=== PATIENT | female | born 1965 | race African-American/Black ===

== ENCOUNTER 2017-05-27 15:05 | Emergency (ER) | payer OTHER ==
[~2017-05-27] VITALS: Ht 172.7 cm; Wt 145.2 kg
[~2017-05-27 15:05] MED LIST: BACTRIM DS TAB1 EACH PO; IBUPROFEN 800800 M1 PO; NORCO 7.5-3251 EACH PO; SENOKOT-S1 TA1 PO; TRAMADOL 50 MG50 MG PO; ZOFRAN ODT4 MG PO
[2017-05-27] MEDS ORDERED: VENTOLIN HFA 1818 GM INH (16:25)
[2017-05-27] MEDS ORDERED: DIFLUCAN200 MG PO (16:25)
[2017-05-27] MEDS ORDERED: TESSALON PERLE100 MG PO (16:25)
[2017-05-27] MEDS ORDERED: CLARITIN-D 121 EAC1 PO (16:25)
[2017-05-27 16:50] VITALS: BP 141/71
== END 2017-05-27 17:05 | disposition home or self-care (01) ==
LOC: ER 15:05
DX: J40 Bronchitis, not specified as acute or chronic (principal); J06.9 Acute upper respiratory infection, unspecified; B35.4 Tinea corporis; F10.99 Alcohol use, unspecified with unspecified alcohol-induced disorder; Z88.1 Allergy status to other antibiotic agents

== ENCOUNTER 2017-06-13 14:34 | Inpatient (IN) | payer OTHER ==
[~2017-06-13] VITALS: Ht 172.7 cm; Wt 149.7 kg
--- NOTE | ~2017-06-13 | 2DMMODE ---
[facility] [address] [place] [address] 2 D/M-MODE ECHOCARDIOGRAM Name: JAJAJAZMÍN Room #: 431-P ADM IN M.R.#: [id number] Admission: 06/13/17 Attend Phys: Dash Vang, Discharge: Date of : 69 Date of Service: 06/14/17 1015 Report #: [id number] THIS REPORT FOR: //name// APPROVED REPORT Study performed: 06/14/2017 09:13:18 EXAM: Comprehensive 2D, Doppler, and color-flow Echocardiogram Patient Location: Bedside Room #: 431 Status: routine BSA: 2.53 HR: 62 bpm BP: 155/74 mmHg Rhythm: NSR Other Information Study Quality: Adequate Indications Pulmonary Embolism Hx: morbid obesity 2D Dimensions RVDd: 39.74 mm LVEF(%): 48.24 (>50%) IVSd: 10.40 (7-11mm) LVOT Diam: 21.00 (18-24mm) LVDd: 49.86 mm PWd: 9.94 (7-11mm) Ascending Ao: 32.62 (22-36mm) LVDs: 37.70 (25-40mm) Aortic Root: 30.61 mm Rodriguez's LVEF: 48.24 % Volumes Left Atrial Volume (Systole) Single Plane 4CH: 54.11 mL Single Plane 2CH: 54.93 mL LA ESV Index: 24.00 mL/m2 Aortic Valve AoV Peak Clarence.: 1.78 m/s AO Peak Gr.: 12.67 mmHg LVOT Max P.21 mmHg LVOT Max V: 1.34 m/s Mitral Valve E/A Ratio: 0.9 MV Decel. Time: 210.86 ms [facility] [place] [address] [place] [address] 2 D/M-MODE ECHOCARDIOGRAM Name: JAZMÍN WILKINSON Room #: 431-[facility] IN .R.#: [id number] Admission: 06/13/17 Attend Phys: Dash Vang, Discharge: Date of : 69 Date of Service: 06/14/17 1015 Report #: [id number] MV E Max Clarence.: 0.74 m/s MV A Clarence.: 0.86 m/s MV PHT: 61.15 ms IVRT: 92.27 ms Pulmonary Valve PV Peak Clarence.: 1.10 m/s PV Peak Gr.: 4.84 mmHg Pulmonary Vein P Vein S: 0.61 m/s P Vein A: 0.34 m/s P Vein D: 0.75 m/s P Vein A Dur.: 101.5 msec P Vein S/D Ratio: 0.81 Tricuspid Valve TR Peak Clarence.: 2.66 m/s RAP Estimate: 5.00 mmHg TR Peak Gr.: 28.38 mmHg PA Pressure: 33.00 mmHg Left Ventricle The left ventricle is normal size. There is normal LV segmental wall motion. There is normal left ventricular wall thickness. Left ventricular systolic function is normal. LVEF 55%. Mild diastolic dysfunction is present (impaired relaxation pattern). Right Ventricle The right ventricle is normal size. The right ventricular systolic function is normal. Atria The left atrium size is normal. The right atrium size is normal. Aortic Valve Aortic valve is mildly calcified. No aortic regurgitation. There is no aortic valvular stenosis. Mitral Valve The mitral valve is normal in structure. Trace to mild mitral regurgitation. Tricuspid Valve The tricuspid valve is normal in structure. Trace to mild tricuspid regurgitation. Estimated PAP is 30-35mmHg. Pulmonic Valve The pulmonary valve is normal in structure. Trace pulmonic [address] [address] 2 D/M-MODE ECHOCARDIOGRAM Name: KANDY WILKINSONLINE Room #: 431-P [facility] IN ..#: [id number] Admission: 06/13/17 Attend Phys: Dash Vang, Discharge: Date of : 69 Date of Service: 06/14/17 1015 Report #: [id number] regurgitation. Great Vessels The aortic root is normal in size. The ascending aorta is normal in size. IVC is normal in size and collapses >50% with inspiration. Pericardium There is no pericardial effusion. Right pleural effusion noted. <Conclusion> Left ventricular systolic function is normal. There is normal LV segmental wall motion. LVEF 55%. Mild diastolic dysfunction is present (impaired relaxation pattern). Aortic valve is mildly sclerotic, no aortic valvular stenosis or insufficiency. The mitral valve is normal in structure. Trace to mild mitral regurgitation. Pulmonary artery pressure of 30-35mmHg There is no pericardial effusion. <ELECTRONICALLY SIGNED> By: Shaknar Brewster MD, [facility] 06/14/17 1015 1015 1015 Shankar Brewster MD, FAC /INF
--- NOTE | ~2017-06-13 | EKG ---
[address] [address] ELECTROCARDIOGRAM REPORT Name: JAJAJAZMÍN Room #: 431-P ADM IN M.R.#: [id number] Admission: 06/13/17 Attend Phys: Dash Vang MD Discharge: Date of : 69 Report #: [id number] THIS REPORT FOR: //name// [facility] ED Test Date: 2017-06-13 Test Time: 14:47:56 Pat Name: JAZMÍN WILKINSON Department: Room: [facility] Gender: F Cra: [id number] : 1965 Requested By: Sandy Suh Order Number: [id number] MD: Shankar Brewster Measurements Intervals [place] Rate: 68 P: 49 MA: 155 QRS: 21 QRSD: 90 T: -17 QT: 399 QTc: 425 Interpretive Statements Sinus rhythm Nonspecific T abnormalities, inferior leads No previous ECG available for comparison Electronically Signed On 06-14-2017 7:20:34 CDT by Shankar Brewster [email or web address] <ELECTRONICALLY SIGNED> By: Shankar Brewster MD, [facility] 06/14/17 0720 [id number] [id number] Shankar Brewster MD, [facility] /EPI
[~2017-06-13 14:34] MED LIST changes: +CLARITIN-D 121 EAC1 PO; +DIFLUCAN200 MG PO; +TESSALON PERLE100 MG PO; +VENTOLIN HFA 1818 GM INH
[2017-06-13 14:35] VITALS: BP 180/92
[2017-06-13] MEDS ORDERED: IBUPROFEN 200200 M1 PO (15:07)
[2017-06-13 15:09] LABS: ABSOLUTE NEUTROPHILS 4.3 thou/uL (1.4-8.2); BASOPHILS 0.6 % (0.0-2.0); HEMATOCRIT 35.6 % (37.0-47.0); LYMPHOCYTES 29.3 % (24.0-44.0); MANUAL DIFF NO; MCH 28.9 pg (26.0-34.0); MCHC 33.8 g/dL (28.0-37.0); MCV 85.5 fL (80.0-100.0); MONOCYTES 9.7 % (1.0-8.0); PLATELET COUNT 294 thou/uL (150-400); POLYS 57.4 % (36.0-66.0); RBC 4.17 mil/uL (4.20-5.00); RDW 13.4 % (10.5-14.5); WBC 7.5 thou/uL (4.0-11.0)
[2017-06-13 15:15] LABS: ANION GAP 7 mmol/L (7-16); BUN 11 mg/dL (7-18); CALCIUM 8.9 mg/dL (8.5-10.1); CHLORIDE 104 mmol/L (98-107); CO2 30 mmol/L (21-32); CREATININE 0.9 mg/dL (0.6-1.0); GLUCOSE 93 mg/dL (74-106); POTASSIUM 4.1 mmol/L (3.5-5.1); SODIUM 141 mmol/L (136-145)
[2017-06-13 15:24] LABS: TROPONIN-I < 0.04 ng/mL (<0.04-0.07)
[2017-06-13 17:14] LABS: APTT 25.7 Seconds (24.5-32.8); PROTIME 9.1 Seconds (9.3-11.4)
[2017-06-13 17:16] VITALS: BP 185/79
[2017-06-13 19:00] VITALS: BP 165/77
[2017-06-13 19:28] VITALS: BP 149/70
[2017-06-14 00:11] VITALS: BP 148/67
[2017-06-14 04:42] VITALS: BP 146/75
[2017-06-14 06:19] LABS: PROTIME 9.7 Seconds (9.3-11.4)
[2017-06-14 07:04] LABS: ANION GAP 4 mmol/L (7-16); BUN 12 mg/dL (7-18); CALCIUM 8.8 mg/dL (8.5-10.1); CHLORIDE 104 mmol/L (98-107); CHOLESTEROL 148 mg/dL (<200); CO2 29 mmol/L (21-32); CREATININE 0.8 mg/dL (0.6-1.0); GLUCOSE 85 mg/dL (74-106); HDL CHOLESTEROL 32 mg/dL (>40); LDL CHOLESTEROL 102 mg/dL (<100); MAGNESIUM 1.8 mg/dL (1.8-2.4); SODIUM 137 mmol/L (136-145); TC:HDL 4.6 Ratio (Not establshd); TRIGLYCERIDE 71 mg/dL (<150); VLDL 14 mg/dL (<40)
[2017-06-14 07:05] LABS: SERUM ASSESSMENT Clear
[2017-06-14 08:00] VITALS: BP 155/74
[2017-06-14] MEDS ORDERED: NORCO 5-325 TA1 EACH PO (15:45)
[2017-06-14] MEDS ORDERED: PROTONIX40 M1 PO (15:46)
[2017-06-14] MEDS ORDERED: ELIQUIS5 MG PO (15:46)
[2017-06-14 16:44] VITALS: BP 155/74
[2017-06-14] MEDS ORDERED: WORK RELEASE (18:15)
== END 2017-06-14 18:46 | disposition home or self-care (01) | DRG 313 ==
LOC: ER 14:34 → EROBS 17:07 → 4E 17:07
PROVIDERS: Emergency Medicine; Nurse Practitioner
DX: R07.9 Chest pain, unspecified (principal); Z68.43 Body mass index [BMI] 50.0-59.9, adult; R03.0 Elevated blood-pressure reading, without diagnosis of hypertension; R05 Cough; E66.01 Morbid (severe) obesity due to excess calories; Z88.8 Allergy status to other drugs, medicaments and biological substances; Z83.3 Family history of diabetes mellitus; Z80.8 Family history of malignant neoplasm of other organs or systems; Z82.49 Family history of ischemic heart disease and other diseases of the circulatory system
CPT/HCPCS: 10183

== ENCOUNTER 2018-11-23 17:25 | Emergency (ER) | payer OTHER ==
[~2018-11-23 17:25] MED LIST changes: +COUMADIN 5 MG TA5 M1 PO; +COUMADIN7.5 MG PO; +DELSYM COU30 MG/5 M1 PO; +ELIQUIS5 MG PO; +ENOXAPARIN150 MG/11 SUBQ; +IBUPROFEN 200200 M1 PO; +IRON325 PO; +LEVAQUIN 500 M500 M2 PO; +MIRALAX17 GM PO; +MUCINEX600 MG PO; +NORCO 5-325 TA1 EACH PO; +NORVASC5 MG PO; +PREDNISONE 20 M20 MG PO; +PROTONIX40 M1 PO; +VITAMIN D1000 UNI1 PO; +WORK RELEASE; +ZYRTEC10 M2 PO
[2018-11-23 17:26] VITALS: BP 130/82
[2018-11-23] MEDS ORDERED: PROMETH-CODEIN 65 ML PO (19:18)
[2018-11-23] MEDS ORDERED: OSELB75 PO (19:18)
--- NOTE | 2018-11-24 09:07 | EKG ---
[place] [address] [address] [facility] [place] [address] ELECTROCARDIOGRAM REPORT Name: JAJAJAZMÍN [id number] ������������������ Admission: 11/23/18 ������������������ Attend Phys: Discharge: 11/23/18 ������������������ Date of : 69 Report #: [id number] ����������������������������������������������������������������� [id number] THIS REPORT FOR: //name// [facility] ED Test Date: 2018-11-23 Test Time: 19:12:40 Pat Name: JAZMÍN WILKINSON Department: Room: Gender: F Printing Table Hand: ISSA : 1965 Requested By: Kimberley Franco Order Number: [id number] MD: Shankar Brewster Measurements Intervals [place] Rate: 61 P: 62 MT: 145 QRS: 17 QRSD: 89 T: -27 QT: 401 QTc: 404 Interpretive Statements Sinus rhythm Abnormal R-wave progression, early transition Borderline repolarization abnormality Compared to ECG 01/18/2018 01:09:31 No significant change was found Electronically Signed On 11-24-2018 9:06:57 [employer] by Shankar Brewster [email or web address] ��������������������������������������������� <ELECTRONICALLY SIGNED> ���������������������������������������� By: Shankar Brewster MD, [facility] ��������������������������������������������� 11/24/18905 11 11 Shankar Brewster MD, [facility] /EPI
== END 2018-11-23 20:15 | disposition home or self-care (01) ==
LOC: ER 17:25
DX: J10.1 Influenza due to other identified influenza virus with other respiratory manifestations (principal); M79.10 Myalgia, unspecified site; R19.7 Diarrhea, unspecified; I10 Essential (primary) hypertension; Z88.1 Allergy status to other antibiotic agents; Z98.890 Other specified postprocedural states; Z86.718 Personal history of other venous thrombosis and embolism

== ENCOUNTER 2019-07-02 15:46 | Inpatient (IN) | payer BC ==
[~2019-07-02] VITALS: Ht 172.7 cm; Wt 170.1 kg
[~2019-07-02 15:46] MED LIST changes: +OSELB75 PO; +PROMETH-CODEIN 65 ML PO
[2019-07-02 15:47] VITALS: BP 139/70
[2019-07-02 16:51] LABS: ABSOLUTE NEUTROPHILS 3.4 thou/uL (1.4-8.2); BASOPHILS 1.3 % (0.0-2.0); EOSINOPHILS 1.8 % (0.0-3.0); HEMATOCRIT 42.6 % (37.0-47.0); HEMOGLOBIN 13.8 gm/dL (12.0-15.0); LYMPHOCYTES 34.6 % (24.0-44.0); MCHC 32.4 g/dL (28.0-37.0); MCV 89.4 fL (80.0-100.0); MONOCYTES 9.4 % (1.0-8.0); PLATELET COUNT 268 thou/uL (150-400); POLYS 52.9 % (36.0-66.0); RBC 4.76 mil/uL (4.20-5.00); RDW 14.9 % (10.5-14.5); WBC 6.4 thou/uL (4.0-11.0)
[2019-07-02 16:54] LABS: ANION GAP 5 mmol/L (7-16); BUN 17 mg/dL (7-18); CALCIUM 9.5 mg/dL (8.5-10.1); CHLORIDE 105 mmol/L (98-107); CO2 29 mmol/L (21-32); GLUCOSE 102 mg/dL (74-106); POTASSIUM 4.6 mmol/L (3.5-5.1); SODIUM 139 mmol/L (136-145)
[2019-07-02 17:03] LABS: TROPONIN-I <0.06 ng/mL (<0.06)
[2019-07-02 17:15] LABS: D-DIMER 1.42 ug/mLFEU (0.19-0.50); PROTIME 9.5 Seconds (9.3-11.4)
[2019-07-02 19:29] VITALS: BP 169/89
--- NOTE | 2019-07-02 19:42 | NUR ---
HANDOFF TOOL SENT TO FLOOR
--- NOTE | 2019-07-02 20:36 | NUR ---
REPORT TO BLANCA BRANCH AT THIS TIME
[2019-07-02 21:19] VITALS: BP 163/80
[2019-07-02 21:40] VITALS: BP 193/100
[2019-07-02] MEDS ORDERED: HYDROCHLOROTHIA25 M2 PO (21:45)
[2019-07-03 01:24] VITALS: BP 179/85
[2019-07-03 03:41] VITALS: BP 129/69
[2019-07-03 05:55] LABS: CALCIUM 9.1 mg/dL (8.5-10.1); POTASSIUM 3.9 mmol/L (3.5-5.1)
--- NOTE | 2019-07-03 06:33 | NUR ---
PT ARRIVED TO UNIT APPROX 2200, ADMISSION AND ASSESSMENT COMPLETED, CONSENTS SIGNED INCLUDING TELE DISCLOSURE. PT IS A&Ox4, UP AD JENNIFER, EDUCATED TO CALL FOR HELP NEEDED OVERNIGHT. ADMIT W/RECURRENT PE; DENIES SOB BUT C/O SEVERE PAIN IN RIGHT SHOULDER/BACK. GAVE NORCO ONCE OVERNIGHT. VENOUS ULTRASOUND COMPLETED AT BEDSIDE. PT HAS BEEN SB-SR OVERNIGHT. PT REPORTED NOT TAKING ANY OF HER HOME MEDS SINCE TUESDAY, WAS HTN ON ARRIVAL TO FLOOR, GAVE HOME MEDS LAST NIGHT. NO OTHER CONCERNS, WILL CONTINUE TO MONITOR.
--- NOTE | 2019-07-03 08:00 | EKG ---
[address] [place] [address] ELECTROCARDIOGRAM REPORT Name: LENA WILKINSONJAZMÍN Room #: 355-P ADM IN M.R.#: [id number] Admission: 07/02/19 Attend Phys: Sathish Lang MD Discharge: Date of : 69 Report #: [id number] THIS REPORT FOR: //name// [facility] ED Test Date: 2019-07-02 Test Time: 15:48:13 Pat Name: JAZMÍN WILKINSON Department: Room: 355 Gender: F Childcare Director: BRAD : 1965 Requested By: Helen Peres Order Number: [id number] MD: Shankar Brewster Measurements Intervals [place] Rate: 58 P: 57 WI: 155 QRS: 11 QRSD: 91 T: -23 QT: 406 QTc: 399 Interpretive Statements Sinus rhythm Nonspecific T abnormalities, inferior leads Compared to ECG 11/23/2018 19:12:40 No significant change was found Electronically Signed On 07-03-2019 8:00:50 CDT by Shankar Brewster [email or web address] <ELECTRONICALLY SIGNED> By: Shankar Brewster MD, [facility] 07/03/19 0800 1548 1548 Shankar Brewster MD, [facility] /EPI
[2019-07-03 08:01] VITALS: BP 146/88
--- NOTE | 2019-07-03 14:04 | NUR ---
ARASH notified by UR RN that pt has requested to transfer to another acute hospital. Pt's insurance is out of network at [facility]. Pt's preference would be [facility], [facility] and [facility]. ARASH spoke with Tia in the transfer center at [facility]. Faxed face sheet for review and provided contact info for attending physician. ARASH updated pt's nurse. ARASH is following to assist as needed with discharge planning.
[2019-07-03] MEDS ORDERED: ACETAMINOPHEN325 M1 PO (14:23)
[2019-07-03] MEDS ORDERED: PROZAC40 MG PO (14:23)
--- NOTE | 2019-07-03 15:03 | NUR ---
ALERTED BY 3W CLINICAL EDUCATION ASSISTANT PT HAD ADMIT ON 3W IN 2018 AND INSURANCE WAS OON. REVIEWED BAR NOTES AND SPOKE WITH BELLA CANELA FROM [facility] WHO CONFIRMED OON , NO [facility] AND HAS $5500 DEDUCTIBLE IN OR OON, THEN OON COVERS $200 DAY AND PT PAYS REMAINDER FO CHARGES. DISCUSSED BENEFITS WITH PT AND AGAIN WITH PT AND HER SPOUSE. PT'S CHOICE IS TO TRANSFER TO [facility] NETWORK H[facility], ([facility], [facility], [facility], [facility]). UPDATED 3W CLINICAL EDUCATION ASSISTANT WHO WORKED ON TRANSFER AND [employer] ACCEPTING AND TRANSFERRING TODAY. DR. LAM INFORMED THIS AM AND UPDATED TO PT CHOICE.
--- NOTE | 2019-07-03 17:08 | NUR ---
ASSUMED CARE OF PATIENT AT 0700. PATIENT REMAINED STABLE WITH PAIN MANAGED WITH MEDICATION. PATIENT SET TO [facility] TODAY TO [facility] PER CASE MANAGMENT FOR INSURANCE RELATED CIRCUMSTANCES.
== END 2019-07-03 18:28 | disposition short-term general hospital (02) | DRG 176 ==
LOC: ER 15:46 → EROBS 18:53 → 3W 18:53
PROVIDERS: Emergency Medicine; Nurse Practitioner Family; ADMIT Hospitalist
DX: I26.99 Other pulmonary embolism without acute cor pulmonale (principal); Z68.43 Body mass index [BMI] 50.0-59.9, adult; E66.01 Morbid (severe) obesity due to excess calories; I10 Essential (primary) hypertension; F41.9 Anxiety disorder, unspecified; Z86.718 Personal history of other venous thrombosis and embolism; Z86.711 Personal history of pulmonary embolism; Z98.891 History of uterine scar from previous surgery; Z88.0 Allergy status to penicillin; Z82.49 Family history of ischemic heart disease and other diseases of the circulatory system; Z83.3 Family history of diabetes mellitus; Z80.51 Family history of malignant neoplasm of kidney
CPT/HCPCS: 10879

== ENCOUNTER 2020-01-31 06:48 | Emergency (ER) | payer OTHER ==
[~2020-01-31] VITALS: Ht 172.7 cm; Wt 176.3 kg
[~2020-01-31 06:48] MED LIST changes: +ACETAMINOPHEN325 M1 PO; +HYDROCHLOROTHIA25 M2 PO; +PROZAC40 MG PO
[2020-01-31] MEDS ORDERED: AUGMENTIN 875-1 EACH PO (09:05)
[2020-01-31] MEDS ORDERED: TRAMADOL 50 MG50 MG PO (09:05)
[2020-01-31 09:51] VITALS: BP 134/71
== END 2020-01-31 09:57 | disposition home or self-care (01) ==
LOC: ER 06:48
DX: S63.286A Dislocation of proximal interphalangeal joint of right little finger, initial encounter (principal); I10 Essential (primary) hypertension; E66.01 Morbid (severe) obesity due to excess calories; Z86.718 Personal history of other venous thrombosis and embolism; Z98.890 Other specified postprocedural states; Z79.899 Other long term (current) drug therapy; Z88.1 Allergy status to other antibiotic agents; W01.0XXA Fall on same level from slipping, tripping and stumbling without subsequent striking against object, initial encounter; Y93.89 Activity, other specified; Y92.89 Other specified places as the place of occurrence of the external cause; Y99.8 Other external cause status

== ENCOUNTER 2020-06-27 07:48 | Emergency (ER) | payer OTHER ==
[~2020-06-27] VITALS: Ht 172.7 cm; Wt 131.5 kg
[~2020-06-27 07:48] MED LIST changes: +AUGMENTIN 875-1 EACH PO
[2020-06-27 09:01] LABS: HEMOGLOBIN 12.4 gm/dL (12.0-15.0); MCHC 31.7 g/dL (28.0-37.0); MCV 88.3 fL (80.0-100.0); RBC 4.42 mil/uL (4.20-5.00); RDW 14.8 % (10.5-14.5); WBC 7.3 thou/uL (4.0-11.0)
[2020-06-27 09:14] LABS: ANION GAP 10 mmol/L (7-16); BUN 19 mg/dL (7-18); CALCIUM 8.9 mg/dL (8.5-10.1); CHLORIDE 107 mmol/L (98-107); CO2 23 mmol/L (21-32); CREATININE 0.8 mg/dL (0.6-1.0); GLUCOSE 108 mg/dL (74-106); POTASSIUM 4.2 mmol/L (3.5-5.1); SODIUM 140 mmol/L (136-145)
[2020-06-27 09:23] LABS: TROPONIN-I <0.06 ng/mL (<0.06)
[2020-06-27 09:46] LABS: APTT 25.4 Seconds (24.5-32.8); PROTIME 9.2 Seconds (9.3-11.4)
[2020-06-27 10:08] LABS: D-DIMER 1.61 ug/mLFEU (0.19-0.50)
[2020-06-27] MEDS ORDERED: GLUCOSAMINE1000 MG PO (12:17)
[2020-06-27] MEDS ORDERED: NORVASC5 M1 PO (12:43)
[2020-06-27] MEDS ORDERED: LIDODERM1 EACH TOP (12:43)
[2020-06-27 12:56] VITALS: BP 200/98
== END 2020-06-27 12:57 | disposition home or self-care (01) ==
LOC: ER 07:48
PROVIDERS: Emergency Medicine
DX: R06.02 Shortness of breath (principal); R22.43 Localized swelling, mass and lump, lower limb, bilateral; I10 Essential (primary) hypertension; Z79.899 Other long term (current) drug therapy; Z88.1 Allergy status to other antibiotic agents

== ENCOUNTER 2021-06-11 16:57 | Emergency (ER) | payer OTHER ==
[~2021-06-11] VITALS: Ht 172.7 cm; Wt 136.1 kg
[~2021-06-11 16:57] MED LIST changes: +GLUCOSAMINE1000 MG PO; +LIDODERM1 EACH TOP; +NORVASC5 M1 PO
[2021-06-11] MEDS ORDERED: FLEXERIL PO (19:16)
[2021-06-11 19:43] VITALS: BP 120/88
== END 2021-06-11 19:38 | disposition home or self-care (01) ==
LOC: ER 16:57
DX: S20.212A Contusion of left front wall of thorax, initial encounter (principal); S40.012A Contusion of left shoulder, initial encounter; I10 Essential (primary) hypertension; E66.01 Morbid (severe) obesity due to excess calories; Z98.890 Other specified postprocedural states; Z88.1 Allergy status to other antibiotic agents; W10.8XXA Fall (on) (from) other stairs and steps, initial encounter; Y93.89 Activity, other specified; Y92.89 Other specified places as the place of occurrence of the external cause; Y99.8 Other external cause status